=== PATIENT | male | born 1995 ===

== ENCOUNTER 2024-11-01 06:05 | Day surgery (SDC) | payer BC ==
[2024-11-01 08:08] VITALS: BMI 28.5
[2024-11-01] MEDS ORDERED: MIDAZOLAM HCL 2 MG/2 ML SINGLE DOSE VIAL ONE (09:10)
[2024-11-01] MEDS ORDERED: oxyCODONE HCL 5 MG TABLET PO PRN ×2 (09:55)
[2024-11-01] MEDS ORDERED: PROMETHAZINE HCL 25 MG/1 ML VIAL IVPB PRN (09:55)
[2024-11-01] MEDS ORDERED: ONDANSETRON 4 MG/2 ML VIAL IVPUSH PRN (09:55)
[2024-11-01] MEDS ORDERED: LACTATED RINGERS SOLUTION 1,000 ML IV SCH (10:00)
[2024-11-01] MEDS ORDERED: LIDOCAINE HCL 2% 100 MG/5 ML DISP.SYRIN ONE (10:12)
[2024-11-01] MEDS ORDERED: DEXAMETHASONE SOD PHOSPHATE 4 MG/1 ML VIAL ONE (10:17)
[2024-11-01] MEDS ORDERED: ONDANSETRON 4 MG/2 ML VIAL ONE (10:17)
[2024-11-01] MEDS ORDERED: SEVOFLURANE 250 ML BTL ONE (10:18)
[2024-11-01] MEDS ORDERED: ceFAZolin SODIUM 1 GM VIAL ONE (10:29)
[2024-11-01] MEDS: ceFAZolin SODIUM 1 GM VIAL IVPB ONE (10:29)
[2024-11-01] MEDS: LIDOCAINE HCL 1%, 10 MG/ML (20ML VIAL) INF ONE (10:34)
[2024-11-01] MEDS: BUPIVACAINE HCL/PF 0.5% (5MG/ML) 10 ML VIAL IJ ONE (10:34)
[2024-11-01] MEDS ORDERED: PROPOFOL 20 ML ONE (10:43)
[2024-11-01] MEDS ORDERED: BACITRACIN ZINC 15 GM TUBE TOPICAL OINTMENT ONE (10:51)
[2024-11-01 19:50] VITALS: RESP 20
[2024-11-01 20:03] VITALS: BP 110/73; PULSE 77; TEMP 97.3
== END 2024-11-01 15:30 | disposition home or self-care (01) ==
LOC: JASU-SURG 06:05
PROVIDERS: ATTEND Urology
PROC: 0VTTXZZ Resection of Prepuce, External Approach (ICD-10-PCS; principal; 2024-11-01 09:45)
PROC: 0VNS0ZZ Release Penis, Open Approach (ICD-10-PCS; 2024-11-01 09:45)
DX: N47.1 Phimosis (principal); Q55.61 Curvature of penis (lateral)
CPT/HCPCS: 88304-TC; 94760